=== PATIENT | female | born 1990 | race Caucasian/White ===

== ENCOUNTER → 2016-07-26 | Outpatient (CLI) | payer BC ==
[2016-07-26 12:23] LABS: HEMATOCRIT 38.9 % (37-47); MEAN CELL VOLUME 86.3 fL (80-100); MEAN CORPUSCULAR HEMOGLOBIN 28.2 pg (25-34); MEAN CORPUSCULAR HGB CONC 32.6 g/dl (32-36); MEAN PLATELET VOLUME 10.2 fL (7.4-10.4); PLATELET COUNT 332 K/uL (130-400); RED BLOOD COUNT 4.51 M/uL (4.2-5.4); WHITE BLOOD COUNT 8.31 K/uL (4.8-10.8)
[2016-07-26 12:37] LABS: ESTIMATED AVERAGE GLUCOSE 117 mg/dl; HA1C FLAG Normal (Normal)
[2016-07-26 15:22] LABS: BLOOD UREA NITROGEN 9 mg/dl (7-18); BUN/CREATININE RATIO 12.8 (10-20); CALCIUM 8.7 mg/dl (8.5-10.1); CARBON DIOXIDE 23 mmol/L (21-32); CHLORIDE 106 mmol/L (98-107); CREATININE 0.73 mg/dl (0.60-1.20); GLUCOSE 93 mg/dl (70-99); POTASSIUM 3.9 mmol/L (3.5-5.1); SODIUM 141 mmol/L (136-145)
[2016-07-26 15:35] LABS: ALB/GLOB RATIO 0.9 (0.9-2); ALKALINE PHOSPHATASE 65 U/L (45-117); ALT/SGPT 18 U/L (12-78); AST/SGOT 10 U/L (15-37); CHOLESTEROL 134 mg/dl (0-200); CHOLESTEROL/HDL RATIO 2.5; HDL CHOLESTEROL 53 mg/dl; LDL CHOLESTEROL CALCULATED 58 mg/dl; TRIGLYCERIDES 115 mg/dl (0-150); VERY LOW DENSITY LIPOPROT CALC 23 mg/dl
== END | disposition home or self-care (01) ==
LOC: C.LABBFT 08:00
DX: E66.9 Obesity, unspecified (principal); G47.33 Obstructive sleep apnea (adult) (pediatric); R06.00 Dyspnea, unspecified; F50.81 Binge eating disorder; J45.909 Unspecified asthma, uncomplicated

== ENCOUNTER → 2016-10-25 | Outpatient (CLI) | payer BC ==
[2016-10-25 17:24] LABS: HEMATOCRIT 38.7 % (37-47); MEAN CELL VOLUME 87.8 fL (80-100); MEAN CORPUSCULAR HEMOGLOBIN 28.6 pg (25-34); MEAN CORPUSCULAR HGB CONC 32.6 g/dl (32-36); MEAN PLATELET VOLUME 10.9 fL (7.4-10.4); PLATELET COUNT 373 K/uL (130-400); RED BLOOD COUNT 4.41 M/uL (4.2-5.4); WHITE BLOOD COUNT 9.62 K/uL (4.8-10.8)
== END | disposition home or self-care (01) ==
LOC: C.LABBFT 15:40
PROVIDERS: ATTEND Surgery
DX: Z01.818 Encounter for other preprocedural examination (principal); E66.01 Morbid (severe) obesity due to excess calories

== ENCOUNTER 2017-10-20 14:57 | Emergency (ER) | payer BC, OTHER ==
[~2017-10-20] VITALS: Ht 160 cm; Wt 97.7 kg
[2017-10-20 15:13] VITALS: TEMP 36.9; Ht 160 cm; Wt 97.7 kg
[2017-10-20] MEDS ORDERED: ACETAMINOPHEN 500 MG TAB PO STA (15:25)
[2017-10-20] MEDS ORDERED: LIDOCAINE 1% BUFFERED INJ 5 ML VIAL INFIL ONE (15:30)
--- NOTE | 2017-10-20 15:35 | EMERGENCY ROOM VISIT NOTE ---
ED Visit Note First contact with patient: 15:17 CHIEF COMPLAINT: Finger injury today HISTORY OF PRESENT ILLNESS: This 27-year-old female patient presents to the emergency department with complaint of an injury to her right ring finger. She states that she was reaching for her cellphone and accidentally jammed her finger into the wooden headboard of her bed. She states that it felt like her nail ripped off of her finger and it was bleeding initially. The bleeding has been controlled since arrival. Patient reports her last tetanus shot was within the past 5 years. She is right-hand dominant. She denies any other injuries. She denies any weakness, numbness or tingling of the finger. She denies any suspected foreign bodies. She denies any headaches, vision changes, chest pain, SOB, abdominal pain, nausea/vomiting, or unusual rash. REVIEW OF SYSTEMS: A complete 6 point review of systems was reviewed with the patient with pertinent positives and negatives as per history of present illness. All else were negative. PMH: The patient is healthy; there is no significant medical or surgical history. SOCIAL HISTORY: Patient lives at home. She denies tobacco use. PHYSICAL EXAM: Vital Signs: Reviewed Nurse's notes. The wrist joint is not swollen or tender. The hand is not swollen and the skin is intact. The distal right ring finger tip is mildly swollen and tender along the shaft from the DIP joint to the tip and the nail is partially avulsed from the nailbed. There is minimal active bleeding and no significant laceration. Brisk cap refill. Sensation intact to light touch in the distal finger. Flexion and extension of the finger was fully intact. EMERGENCY DEPARTMENT COURSE: I examined the patient. Differential diagnosis includes avulsion, laceration, nail bed injury, foreign body, open fracture, among others. Patient was given Tylenol for pain. An X-Ray of the right ring finger is negative for fractures. I obtained verbal consent from the patient to perform the procedure. The base of the right pointer finger was cleansed with saline and Betadine, and a digital block was performed with 1% buffered lidocaine. After appropriate anesthesia was achieved, the wound was irrigated with pressure using copious amount of normal saline. The wound was then explored, noting a complete avulsion of the nail, but the nail root is still firmly attached. There is no nailbed laceration noted. The nail was secured to the finger with 2 single interrupted sutures of 4-0 nylon. Hemostasis achieved. The wound was again cleaned with sterile saline, Bacitracin ointment and sterile bandage were applied. Patient tolerated the procedure well. The patient was educated on proper wound care and follow up, as well as concerning signs to watch for, she verbalized understanding. The patient was discharged home in stable condition and ambulatory. Problem List Medical Problems: (1) Hx MRSA infection Status: Chronic (2) MRSA Status: Resolved (3) Prolonged antepartum rupture of membranes Status: Resolved (4) Threatened miscarriage Status: Resolved (5) Threatened miscarriage Status: Resolved Surgical Problems: (1) Hx of wisdom tooth extraction Status: Resolved (2) S/P tonsillectomy and adenoidectomy Status: Resolved Current/Historical Medications No Active Prescriptions or Reported Meds Allergies Coded Allergies: Penicillins (Verified Allergy, Severe, RASH, 10/20/17) Sulfamethoxazole w/Trimethoprim (Verified Allergy, Mild, UNKNOWN, 05/09/15 ) Vital Signs Date Time Temp Pulse Resp B/P (MAP) Pulse Ox O2 Delivery O2 Flow Rate FiO2 10/20/17 15:13 36.9 72 16 134/75 99 Room Air Medications Administered Medications (Trade) Dose Ordered Sig/Santiago Route Start Time Stop Time Status Last Admin Dose Admin Acetaminophen (Tylenol Tab) 1,000 mg NOW STAT PO 10/20/17 15:25 10/20/17 15:27 DC 10/20/17 15:37 1,000 MG Departure Information Impression Primary Impression: Traumatic avulsion of nail plate of finger Dispostion Home / Self-Care Condition GOOD Prescriptions No Active Prescriptions or Reported Meds Referrals Fritz Connolly,,D.O. (PCP) Patient Instructions ED Avulsion Nail Complete, My [facility] Additional Instructions You have been evaluated and treated in the emergency department for your finger injury. Follow-up with your PCP, in urgent care, or ER for suture removal in 10 days. Keep wound clean and dry. Do not allow any crusting or dried blood to accumulate on sutures. If this occurs, use a 1:1 solution of hydrogen peroxide/ water on a Q-tip to clean the wound. Do not submerge the wound under water until the sutures have been removed. Use an antibiotic ointment for 3-4 days, then let wound dry. Keep covered with a Band-Aid. Ice and elevate for swelling and pain for the next 2-3 days. Ibuprofen 600 mg every 6 hours and/or Tylenol 1000 mg every 8 hours as needed for pain. As with all lacerations, there may be temporary or permanent nerve damage or scarring. In some cases with damage to the nail, the nail may and fall off , and the nail may grow back abnormally. Please seek immediate medical attention for any signs of infection (increasing redness, pain, swelling, pus drainage from the wound, streaking up the hand, fever/chills). Work Instructions Return To Work: 1 day Problem Qualifiers Primary Impression: Traumatic avulsion of nail plate of finger Encounter type: initial encounter Qualified Codes: S61.309A - Unspecified open wound of unspecified finger with damage to nail, initial encounter
--- NOTE | 2017-10-20 15:58 | DIAGNOSTIC IMAGING REPORT ---
RIGHT FOURTH FINGER 3 VIEWS CLINICAL HISTORY: Fourth finger injury. FINDINGS: 3 views of the right fourth finger are obtained. No prior studies are available for comparison at the time of dictation. The skeletal structures are well mineralized. No fracture is seen. The fourth metacarpophalangeal and interphalangeal joints are well-maintained. The overlying soft tissues are normal as imaged. IMPRESSION: No acute bony abnormality is seen in the right fourth finger. Electronically signed by: Kael Dsouza M.D. 10/20/2017 3:56 PM Dictated Date/Time: 10/20/2017 3:55 PM
[2017-10-20 17:18] VITALS: BP 127/84; PULSE 84; O2SAT 99
== END 2017-10-20 17:18 | disposition home or self-care (01) ==
LOC: C.EDB 14:59 → C.EDD 17:18
DX: S61.304A Unspecified open wound of right ring finger with damage to nail, initial encounter (principal); W22.8XXA Striking against or struck by other objects, initial encounter; Z88.0 Allergy status to penicillin; Z88.2 Allergy status to sulfonamides